=== PATIENT | female | born 1980 | race African-American/Black ===

== ENCOUNTER 2020-10-09 12:52 | Outpatient (CLI) | payer OTHER | END 2020-10-09 12:53 | disposition home or self-care (01) | LOC: BICRAD 12:52 | PROVIDERS: ATTEND Thoracic Surgery (Cardiothoracic Vascular Surgery) | DX: J93.9 Pneumothorax, unspecified (principal); J43.9 Emphysema, unspecified | CPT/HCPCS: 71046 ==